=== PATIENT | male | born 1950 | race African-American/Black ===

== ENCOUNTER 2016-08-08 16:01 | Emergency (ER) | payer OTHER ==
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
[~2016-08-08 16:01] MED LIST: ASPIRIN PO; ATENOLOL PO; BAYER ASPIRIN325 M1 PO; FLEXERIL10 MG PO; IBUPROFEN800 MG PO; KEFLEX PO; LASIX PO; LISINOPRIL PO; LISINOPRIL20 MG PO; LORTAB 7.5-5001 TAB PO; PRAVASTATIN SOD20 MG PO; UNKNOWN ANTIBIOTIC; [UNRECOGNIZED DRUG - REMARK]
== END 2016-08-08 18:17 | disposition home or self-care (01) ==
LOC: CFTX 16:01 → CED 16:01 → CFTX 18:08
DX: S01.01XA Laceration without foreign body of scalp, initial encounter (principal); S16.1XXA Strain of muscle, fascia and tendon at neck level, initial encounter; S60.222A Contusion of left hand, initial encounter; R05 Cough; I51.9 Heart disease, unspecified; F17.210 Nicotine dependence, cigarettes, uncomplicated; Z79.899 Other long term (current) drug therapy; V43.52XA Car driver injured in collision with other type car in traffic accident, initial encounter
CPT/HCPCS: 12002; 70450; 72125; 73130; 90471; 90715; 99284

== ENCOUNTER 2016-09-23 14:24 | Inpatient (IN) | payer OTHER ==
[~2016-09-23] VITALS: Ht 175.3 cm; Wt 124.0 kg
--- NOTE | ~2016-09-23 | DS ---
Unit #: [id number] #: [id number] Patient: JASPER MICHAEL [id number] [address] [place], [place] [address] [id number] I MR#: [id number] NAME: JASPER MICHAEL ROOM: 54 Age: 66 Sex: M Admission Date: 09/23/2016 : 1950 Discharge Date: 09/26/2016 Attending Physician: Guerita Ji M.D. Primary Care Physician: Tre Delcid M.D. DISCHARGE SUMMARY THIRD ADDENDUM The patient's Entresto was reportedly going to cost him $100.00 a month and patient cannot afford this. We will discontinue the Entresto and have the patient resume his home dose of lisinopril at 20 mg p.o. daily. I have asked the nurses to please take the samples out of his room that I had given him earlier. Dictated by... Maryjo Pelayo A.P.R.N. for Kaz Springer M.D. JF/yoselyn TD: 09/27/2016 07:23 JOB #: [id number] DISCHARGE SUMMARY Page 1 of 1 X Maryjo Pelayo APRN X DISCHARGE SUMMARY
--- NOTE | ~2016-09-23 | CO ---
Unit #: [id number] #: [id number] Patient: JASPER MICHAEL [id number] [address] [place], [place] [address] [id number] I MR#: [id number] NAME: JASPER MICHAEL ROOM: 547 Age: 66 Sex: M Admission Date: 09/23/2016 : 1950 Attending Physician: Guerita Ji M.D. Primary Care Physician: Tre Delcid M.D. Consultation Date: 09/26/2016 CONSULTATION REPORT REASON FOR CONSULTATION Rule out sleep apnea. CHIEF COMPLAINT Shortness of breath. HISTORY OF PRESENT ILLNESS This is a 66-year-old -[place]ian gentleman with a past medical history significant for congestive heart failure and smoking, who presented to the emergency room with progressive shortness of breath for the last few days with bilateral lower extremity edema. Patient denied any chest pain, nausea, vomiting or diarrhea. No fever or cough. In the emergency room, his EKG was consistent with AFib, which is new to him. Patient stated that he has been a smoker for 20 to 30 years but he had never been a heavy smoker. He has never been told that he has COPD or emphysema. Patient (1) snores at night; however, he feels tired and fatigued in the morning and he always lacks energy. Patient admitted that his brother and other family members have sleep apnea and they use CPAP. PAST MEDICAL HISTORY 1. Hypertension. 2. Hyperlipidemia. 3. Coronary artery disease. 4. DJD. PAST SURGICAL HISTORY 1. Colonoscopy. 2. Total knee replacement. HOME MEDICATIONS 1. Lisinopril. 2. Tenormin. 3. Lasix. 4. Pravastatin. 5. Aspirin. Unit #: [id number] #: [id number] Patient: JASPER MICHAEL FAMILY HISTORY Sleep apnea and coronary artery disease. ALLERGIES No known drug allergy. REVIEW OF SYSTEMS Twelve point review of system was obtained and were negative except for what was mentioned in the HPI. PHYSICAL EXAMINATION GENERAL: The patient is in acute distress. VITAL SIGNS: Blood pressure is 139/71, O2 saturation 98% on room air. HEENT: Atraumatic and normocephalic. PERRLA. EOMI. NECK: Supple. No JVD. No lymphadenopathy. CHEST: Clear to auscultation bilaterally. HEART: S1 and S2. No murmur, gallops or rubs. ABDOMEN: Soft, nontender. Bowel sound is positive. No hepatosplenomegaly. EXTREMITIES: Warm, dry, with plus 2 edema. SOCIAL MEDIA STRATEGIST: Awake, alert, and oriented x3. No focal motor/sensory deficit. SKIN: No rashes. DIAGNOSTIC STUDIES LABS: Creatinine 1.5, sodium 139. White blood count is 6.1. IMAGING STUDIES: Chest x-ray is noted and reviewed by me. ASSESSMENT 1. Acute and chronic systolic congestive heart failure. 2. Presumed obstructive sleep apnea. 3. Hypertension. 4. Hyperlipidemia. 5. Smoking. 6. Morbid obesity. PLAN 1. Blood pressure and congestive heart failure management per cardiology. 2. Patient was counseled extensively regarding sleep apnea, physiology, complications, and he was advised that sleep apnea put patient at risk for coronary artery disease and strokes. He was also advised that his congestive heart failure and AFib may never be optimally controlled with no sleep apnea screening and treatment. 3. Patient was also counseled regarding smoking cessation but he is not interested as he does not think he is a heavy smoker. 4. Patient at this point refused to have a sleep study as an outpatient; however, our business card was given to him and he will followup as an outpatient if he changes his mind. My advice, that his primary medicine worker have another discussion with him regarding the importance of sleep apnea screening and treatment. I would like to thank Dr. Springer for allowing me to be part of this patient's care. Dictated by... Unit #: [id number] #: [id number] Patient: JASPER MICHAEL Tera James TD: 09/27/2016 06:58 JOB #: [id number] CONSULTATION REPORT Page 1 of 1 X KATLIN MATTSON MD CONSULTATION REPORT
--- NOTE | ~2016-09-23 | CR72 ---
[facility] A Service of [facility] RADIOLOGY TEXT RESULTS PATIENT: JASPER MICHAEL LOCATION: [place] [address]-01 : 49 UNIT #: [id number] AGE: [address]: Guerita Ji MD SEX: M ORDER DR: [id number] [facility] [address] [place], [place] [address] [id number] I MR#: [id number] Acc #: [id number] NAME: JASPER MICHAEL : 1950 SEX: M STUDY DATE/TIME: 09/23/2016 15:33 UNIT: [facility] ROOM: [facility] STUDY DESCRIPTION: CR Chest Single View Portable Attending Physician: Guerita Ji M.D. Ordering Physician: Patrick Jorge M.D. Primary Care Physician: Tre Delcid M.D. MEDICAL IMAGING REPORT This report is preliminary unless electronic signature is present EXAM Portable AP view of the chest COMPARISON January 26, 2016, November 22, 2014 and November 08, 2013. INDICATIONS 66-year-old male with dyspnea for 3 days. FINDINGS There is poor inspiratory effort. When allowing for diminished lung volumes, cardiomediastinal silhouette is within normal limits. There is no evidence of pneumothorax or pleural effusion. There is increased prominence of the central bronchovascular structures likely reflecting bronchovascular crowding. There is minimal band-like opacity in the right lower lobe, also most suggestive of bronchovascular crowding/atelectasis. Normal heart size. There is tortuosity of the descending thoracic aorta, which is likely stable when allowing for differences in lung volumes. IMPRESSION Diminished lung volumes from comparison study, with findings most consistent with bronchovascular crowding centrally, and mild increased right basilar opacities favoring atelectasis. Clinical correlation recommended. Dictated by... Jerrod Urena M.D. THIS IS AN ELECTRONICALLY VERIFIED REPORT Jerrod Urena M.D. at 09/30/2016 5:07 PM [facility]/psc [facility] A Service of [facility] RADIOLOGY TEXT RESULTS PATIENT: JASPER MICHAEL LOCATION: [facility] 547-01 : 49 UNIT #: [id number] AGE: [address]: Guerita Ji MD SEX: M ORDER DR: TD: 09/24/2016 02:15 JOB #: [id number] MEDICAL IMAGING REPORT Page 1 of 1 COPY
--- NOTE | ~2016-09-23 | DS ---
Unit #: [id number] #: [id number] Patient: JASPER MICHAEL [id number] [place] [address] [facility]. [place], [place] [address] [id number] I MR#: [id number] NAME: JASPER MICHAEL ROOM: 547 Age: 66 Sex: M Admission Date: 09/23/2016 : 1950 Discharge Date: 09/26/2016 Attending Physician: Guerita Ji M.D. Primary Care Physician: Tre Delcid M.D. DISCHARGE SUMMARY DISCHARGE DIAGNOSES 1. New-onset atrial fibrillation, now sinus rhythm. 2. Acute on chronic systolic congestive heart failure and left ventricular ejection fraction of 15% to 20%. 3. Ischemic cardiomyopathy. 4. Hypertension. 5. Hyperlipidemia. 6. Ventricular tachycardia, nonsustained. 7. Coronary artery disease with history of stents x3. 8. Obesity with a body mass index greater than 30. 9. Possible obstructive sleep apnea. PROCEDURE Patient underwent a 2D echocardiogram on September 24, 2016, which showed a dilated left ventricle (1) ejection fraction severely depressed with a LV EF of 15% to 20%. Basal and mid anterolateral, basal and mid inferolateral and basal inferior akinesis. Remaining segment is hypokinetic. Pseudonormalization. Grade 2 diastolic dysfunction. Moderately dilated left atrium. Right ventricular global systolic function is mildly reduced. Xtvi-he-aclapmfj mitral regurgitation is present. Mild tricuspid regurgitation. RSVP of 50-55 mmHg. DIAGNOSTIC STUDIES LABORATORY: Most recent laboratory results: Sodium 139, potassium 4, chloride 99, CO2 of 32, glucose 98, BUN 21, creatinine 1.5. Magnesium 2. HOSPITAL COURSE The patient is a 66-year-old -[place] male, who follows with Dr. Spear of [facility]. The patient presented to the hospital with complaints of progressive dyspnea for about three days. He states he can only walk up approximately 20 feet before he has to stop and catch his breath. The patient denies any chest pain, nausea, vomiting, fever, chills, or dizziness. His EKG showed atrial fibrillation which was likely new. He was initially started on a beta luly. The patient also was having runs of nonsustained ventricular tachycardia and was ultimately started on amiodarone p.o. For the patient's acute on chronic systolic and diastolic congestive heart failure, the patient was initially on an GETACHEW inhibitor. The patient's GETACHEW inhibitor will be held for two days and the patient will be started on Entresto. The patient's Coreg has been discontinued. The patient has been started on metoprolol secondary to impotence. The patient's diuretics have been changed. He was initially on Lasix and now patient will be discharged on Bumex. Today, Dr. Springer has seen and evaluated the patient. He has decided the Unit #: [id number] #: [id number] Patient: JASPER MICHAEL patient is stable for discharge. A LifeVest consult will be obtained prior to patient being discharged. DISCHARGE FOLLOWUP INSTRUCTIONS 1. The patient will be discharged home. 2. The patient will follow up with Dr. Spear in one to two weeks. 3. BMP in one week. 4. Healthy heart diet. 5. Activity as tolerated. 6. (2) . 7. The patient should follow up with his primary care provider in one week for possible obstructive sleep apnea. 8. The patient to seek medical attention or return to the ER if signs or symptoms worsen. DISCHARGE MEDICATIONS 1. Amiodarone 200 mg p.o. b.i.d. x5 days, then 200 mg p.o. daily. 2. Lopressor 12.5 mg p.o. b.i.d. 3. Bumex 1 mg p.o. b.i.d. 4. Pravastatin 20 mg p.o. daily. 5. Aspirin 81 mg p.o. daily. 6. Percocet 10/325 mg one tab p.o. three times daily p.r.n. pain. 7. Vitamin D 5000 units p.o. daily. 8. Entresto 26/24 mg p.o. b.i.d. Patient is to start this on September 28, 2016. 9. Xarelto 20 mg p.o. daily. 10. Spironolactone 12.5 mg p.o. daily. Dictated by... Maryjo Pelayo A.P.R.N. for Tera Estrada TD: 09/26/2016 12:33 JOB #: [id number] DISCHARGE SUMMARY Page 1 of 1 X Maryjo Pelayo APRN X DISCHARGE SUMMARY
--- NOTE | ~2016-09-23 | HP ---
Unit #: [id number] #: [id number] Patient: JASPER MICHAEL [id number] [facility]. [place], [place] [address] [id number] MR#: [id number] NAME: JASPER MICHAEL ROOM: Age: 66 Sex: M Admission Date: 09/23/2016 : 1950 Attending Physician: Patrick Jorge M.D. Primary Care Physician: Tre Delcid M.D. HISTORY AND PHYSICAL HISTORY OF PRESENT ILLNESS This 66-year-old -[place] male patient who has been followed by Dr. Spear has been complaining of progressive dyspnea for about three days. He can walk only up to 20 feet before he had to stop. He also has orthopnea. No paroxysmal nocturnal dyspnea. The patient had no chest pains. He complained of right shoulder pains. He has no previous history of palpitation, dizziness or syncope. His EKG shows atrial fibrillation which is probably new. He has hypertension and hyperlipidemia. He has coronary artery disease and three stents, the last one probably in 2008. In October 2013, he was admitted with ischemic right foot and underwent right popliteal thrombectomy. At the time, he had a nonsustained ventricular tachycardia. Echocardiogram showed ejection fraction 45 to 50% with apical hypokinesis. Mild left ventricular hypertrophy noted. Chest x-ray consistent with congestive heart failure. PAST SURGICAL HISTORY Right total knee replacement and right hip replacement. PERSONAL HISTORY He used to smoke less than a half pack of cigarettes per day. Now, he smokes only one or two cigarettes a day. He used to a pipelaying fitter and a welder gas. FAMILY HISTORY His father possibly has coronary artery disease. ALLERGIES No drug allergies. HOME MEDICATIONS 1. Lisinopril. 2. Tenormin. 3. Lasix. 4. Pravastatin. 5. Carlos aspirin. REVIEW OF SYSTEMS No fever, chills, night sweats or weight loss. All others negative except as mentioned above. PHYSICAL EXAMINATION GENERAL APPEARANCE: The patient is well developed. VITAL SIGNS: Blood pressure 134/98. Heart rate 99 per minute, irregular. Respiratory rate 16 per minute. Unit #: [id number] #: [id number] Patient: JASPER MICHAEL HEENT: Oral mucosa without cyanosis or pallor. No xanthelasma. NECK: No JVD. CARDIOVASCULAR: Irregular rate and rhythm. PMI is not displaced on auscultation. S1, S2 normal. No S3, S4, murmur, rubs or clicks noted. VASCULAR: Carotid pulses are brisk without bruit. Abdominal aorta without bruit. Femoral and pedal pulses normal with a normal pulse amplitude. LUNGS: A few scattered rales noted especially at the bases. Mild accessory muscle use noted. ABDOMEN: Soft and nontender. No hepatosplenomegaly. RECTAL: Deferred. EXTREMITIES: Warm and dry. No cyanosis or clubbing. 2+ pedal bilaterally. MUSCULOSKELETAL: No scoliosis. DERMATOLOGIC: No stasis dermatitis. NEUROLOGIC: Alert and oriented x3. Pleasant affect. DIAGNOSTIC STUDIES LABORATORY: Glucose 101, BUN 18, creatinine 1.3, sodium 138, potassium 4.3. Troponin less than 0.05. WBC 6.1, hemoglobin 14.4, hematocrit 45.1, platelets 152,000. BNP 722. IMPRESSION 1. Acute on chronic congestive heart failure possibly systolic. 2. Hypertension. 3. Hyperlipidemia. 4. History of prior myocardial infarction and stents. PLAN The patient will be treated with IV diuretics. We will get an echocardiogram. We will continue his previous home medications which include beta blockers and GETACHEW inhibitors and aspirin. Dictated by Tera Ashley/patito TD: 09/23/2016 16:53 JOB #: [id number] HISTORY AND PHYSICAL Page 1 of 1 X Guerita Ji MD X HISTORY AND PHYSICAL
--- NOTE | ~2016-09-23 | EKG ---
PATIENT: JASPER MICHAEL UNIT #: [id number] Ventricular Rate: 63 BPM Atrial Rate: 63 BPM P-R Interval: 172 ms QRS Duration: 126 ms Q-T Interval: 430 ms QTC Calculation(Bezet): 440 ms P [place]: 82 degrees Calculated R [place]: 18 degrees Calculated T [place]: 70 degrees Diagnosis Line: Sinus rhythm with occasional Premature ventricular Diagnosis Line: complexes Diagnosis Line: Non-specific intra-ventricular conduction block Diagnosis Line: Nonspecific T wave abnormality Diagnosis Line: Abnormal ECG Diagnosis Line: When compared with ECG of 23-SEP-2016 14:41, Diagnosis Line: Sinus rhythm has replaced Atrial fibrillation Diagnosis Line: Nonspecific T wave abnormality has replaced Diagnosis Line: inverted T waves in Lateral leads Diagnosis Line: Confirmed by VIVIAN SORTO MD ([id number]) on Diagnosis Line: 09/24/2016 9:37:03 AM INTERPRETING MD: NOREEN LANCASTER
--- NOTE | ~2016-09-23 | EKG ---
PATIENT: JASPER MICHAEL UNIT #: [id number] Ventricular Rate: 68 BPM Atrial Rate: 227 BPM QRS Duration: 122 ms Q-T Interval: 400 ms QTC Calculation(Bezet): 425 ms Calculated R [place]: -19 degrees Calculated T [place]: -109 degrees Diagnosis Line: Atrial fibrillation with premature ventricular or Diagnosis Line: aberrantly conducted complexes Diagnosis Line: Non-specific intra-ventricular conduction delay Diagnosis Line: Nonspecific T wave abnormality Diagnosis Line: Abnormal ECG Diagnosis Line: When compared with ECG of 10-NOV-2013 06:32, Diagnosis Line: Atrial fibrillation has replaced Sinus rhythm Diagnosis Line: Non-specific intra-ventricular conduction delay Diagnosis Line: has replaced Incomplete left bundle branch block Diagnosis Line: Confirmed by CINTHIA BARON MD ([id number]) on Diagnosis Line: 09/23/2016 5:45:17 PM INTERPRETING MD: TOD LANCASTER
--- NOTE | ~2016-09-23 | CR230 ---
[facility] A Service of [facility] RADIOLOGY TEXT RESULTS PATIENT: JASPER MICHAEL LOCATION: [place] [address]- : [birth year] UNIT #: [id number] AGE: [address]: Guerita Ji MD SEX: M ORDER DR: [id number] [facility] [address] [facility]. [place], [place] [address] [id number] I MR#: [id number] Acc #: [id number] NAME: JASPER MICHAEL : 1950 SEX: M STUDY DATE/TIME: 09/23/2016 15:35 UNIT: [facility] ROOM: [facility] STUDY DESCRIPTION: CR Shoulder Min 2 View Rt Attending Physician: Guerita Ji M.D. Ordering Physician: Patrick Jorge M.D. Primary Care Physician: Tre Delcid M.D. MEDICAL IMAGING REPORT This report is preliminary unless electronic signature is present EXAM Right shoulder INDICATIONS Right shoulder pain for 6 months. FINDINGS Two views of the right shoulder without comparison. There is no acute fracture or dislocation. Acromioclavicular and glenohumeral articulations are within normal limits. IMPRESSION Negative right shoulder. Dictated by... Tree Funk M.D. THIS IS AN ELECTRONICALLY VERIFIED REPORT Tree Funk M.D. at 09/24/2016 8:10 AM C/sandra TD: 09/24/2016 02:04 JOB #: [id number] MEDICAL IMAGING REPORT Page 1 of 1 COPY
--- NOTE | ~2016-09-23 | DS ---
Unit #: [id number] #: [id number] Patient: JASPER MICHAEL [id number] [place], [place] [address] [id number] I MR#: [id number] NAME: JASPER MICHAEL ROOM: [facility] Age: 66 Sex: M Admission Date: 09/23/2016 : 1950 Discharge Date: 09/26/2016 Attending Physician: Guerita Ji M.D. Primary Care Physician: Tre Delcid M.D. DISCHARGE SUMMARY ADDENDUM After discussion with Dr. Springer, patient's discharge medications will be changed. The patient will be discharged on: 1. Aspirin 81 mg p.o. daily. 2. Percocet 10/325 mg one tab p.o. four times daily p.r.n. pain. 3. Vitamin D 5000 units p.o. daily. 4. Entresto 26/24 mg p.o. b.i.d. Start September 28, 2016. 5. Xarelto 20 mg p.o. daily. 6. Spironolactone 12.5 mg p.o. daily. 7. Amiodarone 200 mg p.o. b.i.d. x5 days, then 200 mg p.o. daily. 8. Tenormin 25 mg p.o. daily. 9. Lasix 20 mg p.o. daily. 10. Pravastatin 20 mg p.o. daily. Dictated by... Maryjo Pelayo A.P.R.N. for Kaz Springer M.D. AM/chirag TD: 09/26/2016 14:48 JOB #: [id number] DISCHARGE SUMMARY Page 1 of 1 X Maryjo Pelayo APRN DISCHARGE SUMMARY
[2016-09-23 15:24] LABS: BASOPHIL# 0.1 X10e3 (0-0.3); BASOPHIL% 0.9 % (0-2.5); EOSINOPHIL# 0.1 X10e3 (0-0.7); EOSINOPHIL% 0.9 % (0.0-7.0); HEMATOCRIT 45.1 % (38.0-50.0); HEMOGLOBIN 14.4 gm/dL (13.0-16.0); LYMPHOCYTE% 16.5 % (17.0-45.0); MEAN CELL VOLUME 93.1 FL (83-96); MEAN CORPUSCULAR HEMOGLOBIN 29.7 PG (28-34); MEAN CORPUSCULAR HGB CONC 31.9 g/dL (30-36); MEAN PLATELET VOLUME 8.5 FL (6.5-11.5); MONOCYTE# 0.4 X10e3 (0-1.0); NEUTROPHIL# 4.6 X10e3 (1.5-7.1); NEUTROPHIL% 74.7 % (40-75); PLATELET COUNT 152 X10e3 (140-420); RED BLOOD COUNT 4.84 X10e (3.90-5.60); WHITE BLOOD COUNT 6.1 X10e3 (4.0-10.5)
[2016-09-23 15:27] LABS: DIFF IND NO
[2016-09-23 15:33] LABS: POC - CKMB 1.1 ng/mL (0.0-7.9); POC - TROPONIN <0.05 ng/mL (<=0.05)
[2016-09-23 15:59] LABS: ALBUMIN SERUM 3.9 g/dL (3.5-5.0); BILIRUBIN, DIRECT 0.2 mg/dL (0.0-0.2); BILIRUBIN,INDIRECT 0.7 mg/dL (0.0-0.9); BILIRUBIN,TOTAL 0.9 mg/dL (0.2-2.0); BUN/CREATININE RATIO 13.84; CALCIUM SERUM 8.8 mg/dL (8.4-10.2); CREATININE SERUM 1.3 mg/dL (0.6-1.4); GLOM FILT RATE Estimated 65.5 mL/min (>60); POTASSIUM 4.3 mmol/L (3.5-5.1); PROTEIN TOTAL SERUM 6.9 g/dL (6.0-8.3)
[2016-09-23 16:14] LABS: INR 1.2; PROTHROMBIN TIME (PATIENT) 12.5 SECONDS (10.0-11.7)
[2016-09-23 17:18] LABS: POC - CKMB 1.4 ng/mL (0.0-7.9); POC - TROPONIN <0.05 ng/mL (<=0.05)
[2016-09-23] MEDS ORDERED: VITAMIN D400 UNI2 PO (18:26)
[2016-09-23] MEDS ORDERED: PERCOCET10 PO (21:07)
[2016-09-24 07:01] LABS: BUN/CREATININE RATIO 13.33; CALCIUM SERUM 9.1 mg/dL (8.4-10.2); CREATININE SERUM 1.5 mg/dL (0.6-1.4); GLOM FILT RATE Estimated 55.1 mL/min (>60); POTASSIUM 4.6 mmol/L (3.5-5.1)
[2016-09-24 07:14] LABS: %MB 3.3 % (0.0-4.0); MB 2.4 ng/ml
[2016-09-24 12:36] LABS: CHOLESTEROL 115 mg/dL (0-200); HDL CHOLESTEROL 39 mg/dL (29-75); LDL CHOLESTEROL 54 mg/dL ([, -130]); LDL/HDL RATIO 1 RATIO (0-4); TRIGLYCERIDES 108 mg/dL (10-160)
[2016-09-25 05:51] LABS: CALCIUM SERUM 8.6 mg/dL (8.4-10.2); CREATININE SERUM 1.5 mg/dL (0.6-1.4); GLOM FILT RATE Estimated 55.1 mL/min (>60)
[2016-09-26] MEDS ORDERED: AMIODARONE HCL200 MG PO (15:56)
[2016-09-26] MEDS ORDERED: LOW DOSE ASPIRI81 M1 PO (16:03)
[2016-09-26] MEDS ORDERED: ENTRESTO 24 MG1 EACH PO (16:26)
[2016-09-26] MEDS ORDERED: XARELTO20 MG PO (16:27)
[2016-09-26] MEDS ORDERED: ALDACTONE PO (16:28)
== END 2016-09-26 18:41 | disposition home or self-care (01) | DRG 308 ==
LOC: CED 14:24 → C5B 17:28 → CEDOF 17:28 → CED 17:28 → CEDOF 18:54 → C5B 18:54
PROVIDERS: Emergency Medicine; Internal Medicine Cardiovascular Disease; Nurse Practitioner
PROC: B24BYZZ Ultrasonography of Heart with Aorta using Other Contrast (ICD-10-PCS; principal; 2016-09-24)
DX: I48.91 Unspecified atrial fibrillation (principal); I50.23 Acute on chronic systolic (congestive) heart failure; I47.2 Ventricular tachycardia; I11.0 Hypertensive heart disease with heart failure; E78.5 Hyperlipidemia, unspecified; I25.2 Old myocardial infarction; I25.10 Atherosclerotic heart disease of native coronary artery without angina pectoris; Z96.659 Presence of unspecified artificial knee joint; F17.210 Nicotine dependence, cigarettes, uncomplicated; Z79.82 Long term (current) use of aspirin; G47.33 Obstructive sleep apnea (adult) (pediatric); E66.01 Morbid (severe) obesity due to excess calories; I25.5 Ischemic cardiomyopathy; Z68.39 Body mass index [BMI] 39.0-39.9, adult
CPT/HCPCS: 36415; 71010; 73030; 80048; 80061; 80076; 82550; 82553; 83735; 83880; 84443; 84484; 85025; 85379; 85610; 85730; 93005; 93306; 96374; 99291; J1650; J1940